=== PATIENT | female | born 1970 | race Caucasian/White ===

== ENCOUNTER 2018-03-08 19:56 | Emergency (ER) | payer BC ==
--- OUTSIDE RECORDS SUMMARY | 2018-03-08 20:04 | XMS REPORT ---
:1970 External Reference #:[id number] Author Organization Formerly [facility], [facility] Address [address] [place] [address] Phone [phone] Care Team Providers Name Role Phone Fiordaliza Kirby M.D., R.D. Care Team Information [employer] Gat[employer]r Unavailable Payers Type Date Identification Numbers Payment Provider Subscriber Commercial Effective: Policy Number: Prerna Armendariz 2008 [id number] Expires: 2010 Group Number: [id number] [address] Group Name: BC/BS of REMBERTO Wilson [id number] PayID: [id number] Medigap Part B Effective: Policy Number: Prerna Bairestrangjared 2010 [id number] Expires: 2011 PayID: [id number] [address] [address] REMBERTO Bennett [address] Medig[place] Part B Effective: Policy Number: Prerna Armendariz 2011 [id number] Group Name: [facility] [place] [address] PayID: [id number] REMBERTO Bennett [address] Problems Date Description Provider Status Onset: 10/21/2012 Gastroesophageal reflux disease MUNIR Gaspar Active Onset: 10/21/2012 Asthma without status asthmaticus Fiordaliza Kirby M.D., R.D. Active Onset: 10/21/2012 Allergic rhinitis Manuel Link M.D. Active Onset: 10/21/2012 Urinary incontinence Luke Carvajal, [facility] Active Social History Type Date Description Comments Lives With Male Partner Lives With Daughter Home Environment Uses wood heating Pets 2 dogs Occupation Teacher hiv cts specialist at [employer] Cigarette Use Never Smoked Cigarettes ETOH Use Occasionally consumes alcohol Recreational Drug Use Denies Drug Use Daily Caffeine Consumes on average 1 soda per day Enjoy Exercising Enjoys exercising not exercising as much as she would like Allergies, Adverse Reactions, Alerts Date Description Reaction Status Severity Comments 08/30/2008 Codeine Sulfate active tongue swelling, SOB Medications Medication Date Status Form Strength Qnty SIG Indications Ordering Provider Macrobid 02/04/ Active Capsules 100mg 10cap take one R30.0 Yovani 2018 s capsule by [place] mouth twice , MD a day Metronidazole 02/04/ Active Tablets 500mg 21tab take 1 R30.0 Yovani 2018 s tablet by [place] mouth 3 , MD times per day for 7 days for vaginosis caused by bacteria No Active 02/04/ Hx Unknown Medications 2017 - 2017 No Active 07/26/ Hx Unknown Medications 2015 - 2015 Azithromycin 07/26/ Hx Tablets 250mg 6tabs take 2 Yovani 2016 - tablets by [place] 02/04/ mouth MD alejandra 2017 time then take one daily for 4 days Fluticasone 07/26/ Hx Suspension 50mcg/Act 16uni inhale one Yovani Propionate 2015 - ts spray in Connie 02/04/ MD ying 2017 nostril every day Vitamin D 03/24/ Hx Capsules [id number] 8caps take 1 [place] (Ergocalciferol 2015 - capsule by Donato Carvajal, ) 04/23/ mouth twice [facility] 2014 weekly for 1 month as directed Nortriptyline 03/10/ Hx Capsules 10mg 30cap 1 by mouth 780.52 [place] HCL 2015 - s every night Donato Carvajal 07/26/ at bedtime [facility]- 2015 for headache and insomnia Prednisone 08/25/ Hx Tablets 20mg QS take 2 493.90 Fiordaliza 2013 - pills daily Kofi 03/10/ for 5 days Aniyah Dominique RRui Triamcinolone 08/31/ Hx Cream 0.1% 30gm apply to 782.1 Fiordaliza Acetonide 2012 - affected Kofi, 07/26/ area bid M.D., 2016 prn R.D. Toviaz 04/27/ Hx Tablets ER 8mg Fiordaliza 2011 - 24HR Kofi, M.D., 2016 R.D. Nexium 04/27/ Hx Capsules DR 40mg 30cap 1 po qd 530.81 Fiordaliza 2011 - s Kofi, M.D., 2016 R.D. Sucralfate 04/27/ Hx Tablets 1gm 60tab 1 po qid 530.81 Fiordaliza 2011 - s Kofi, M.D., 2013 R.D. Qvar 09/10/ Hx Aerosol 80mcg/Act 1unit 1 puff bid 493.90 Fiordaliza 2011 - s Kofi, M.D., 2016 R.D. Clindamycin 01/15/ Hx Cream 2% 1week one 616.10 [place] Phosphate 2011 - applicator Donato Carvajal, 04/27/ full into [employer] 2012 vaginal before bed for one week Omeprazole 10/26/ Hx Capsules DR 20mg 30cap 1 po qd-ac 786.59 Luke 2011 - s for stomach Donato Carvajal, 07/26/ acid [employer] 2016 Ibuprofen 10/26/ Hx Tablets 600mg 60tab 1 tid prn 786.59 Luke 2011 - s pain, take Donato Carvajal, 07/26/ with food [employer] 2016 Xopenex HFA 10/20/ Hx Aerosol 45mcg/Act 15gm 2 puffs Manuel 2010 - q4hrs prn Link, 07/26/ M.D. 2016 Ventolin HFA 10/20/ Hx Aerosol 108(90Bas 1unit 2 puffs 461.8 Manuel 2010 - e) mcg/ac s q4hrs prn Link, 07/26/ M.D. 2015 Amoxicillin/Cla 10/20/ Hx Tablets 875-125mg 20tab 1 po bid x 461.8 Manuel beckford 2010 - s 10 days Link, Potassium 01/18/ M.D. 2010 Amoxicillin 06/22/ Hx Tablets 875mg 20tab 1 po bid x 461.8 Manuel 2008 - s 10 days. Link, 09/20/ M.D. 2009 Daniela-D 12 06/22/ Hx Tablets ER 60-120mg 60tab 1 po bid 477.9 Manuel Hour 2008 - 12HR s Link, M.D. 2011 Daniela 12/22/ Hx Tablets 180mg 30tab 1 po qd 2008 - s Fariba, M.D. 2011 Amoxicillin 12/22/ Hx Tablets 875mg 20tab 1 po bid x 461.8 Manuel 2008 - s 10 days. Fariba, M.D. 2008 [place] XR 08/30/ Hx Caps ER 60mg 30cap 1 po daily 788.30 Luke 2009 - 24HR s for urine Donato Carvajal, 04/27/ [employer] 2012 Zithromax 08/30/ Hx Tablets 500mg 3Tabs 1 po daily 461.8 Luke Tri-Mohsen 2009 - for three Donato Carvajal, 06/22/ days, november [employer] 2008 repeat in 10 days if not effective Albuterol 08/30/ Hx Aerosol 90mcg/Act 1Inhl 2 puffs 461.8 Luke 2008 - r every 4-6 Donato Carvajal, 10/20/ hours if [employer] 2010 needed for cough, wheeze or shortness of breath Immunizations CPT Code Status Date Vaccine Lot # [id number] Given 05/03/2016 Influenza Virus Vaccine, Quadrivalent, 3 Yr > [id number] Quad, Preserv Free [id number] Refused 02/19/2016 Influenza Virus Vaccine, Quadrivalent, 3 Yr > Quad , Preserv Free Vital Signs Date Vital Result Comment 02/04/2018 Weight 137.00 lb Weight in kg's 62.143 BP Systolic 116 mmHg BP Diastolic 72 mmHg Heart Rate 83 /min Body Temperature 97.2 F Respiratory Rate 16 /min O2 % BldC Oximetry 99 % 03/22/2016 Weight 133.00 lb Weight in kg's 60.329 BP Systolic 106 mmHg BP Diastolic 68 mmHg Heart Rate 63 /min Body Temperature 99.2 F Respiratory Rate 14 /min Right Visual Acuity Distance 20/13 Corrected Left Visual Acuity Distance 20/15 Corrected Both Visual Acuity Distance 20/13 Corrected O2 % BldC Oximetry 98 % 02/19/2016 Weight 134.00 lb Weight in kg's 60.782 BP Systolic 98 mmHg BP Diastolic 76 mmHg Heart Rate 74 /min Body Temperature 98.9 F Height 66 inches 5'6" BMI (Body Mass Index) 21.6 kg/m2 O2 % BldC Oximetry 98 % 07/26/2015 Weight 135.00 lb Weight in kg's 61.236 BP Systolic 100 mmHg BP Diastolic 62 mmHg Heart Rate 75 /min Body Temperature 97.9 F O2 % BldC Oximetry 99 % 03/24/2015 Weight 129.00 lb Weight in kg's 58.514 BP Systolic 90 mmHg BP Diastolic 60 mmHg Heart Rate 72 /min 03/10/2015 Weight 132.00 lb Weight in kg's 59.875 BP Systolic 100 mmHg BP Diastolic 70 mmHg Heart Rate 64 /min 11/03/2013 Weight 127.00 lb Weight in kg's 57.607 BP Systolic 98 mmHg BP Diastolic 70 mmHg Heart Rate 72 /min Body Temperature 98.3 F Height 66 inches 5'6" BMI (Body Mass Index) 20.5 kg/m2 08/25/2013 Weight 124.00 lb Weight in kg's 56.246 BP Systolic 110 mmHg BP Diastolic 80 mmHg Heart Rate 80 /min Body Temperature 99.0 F 2012 Weight 135.00 lb Weight in kg's 61.236 BP Systolic 120 mmHg BP Diastolic 84 mmHg Heart Rate 68 /min 09/29/2012 Weight 137.00 lb Weight in kg's 62.143 BP Systolic 110 mmHg BP Diastolic 72 mmHg Heart Rate 80 /min Body Temperature 99.0 F 09/07/2012 Weight 138.00 lb Weight in kg's 62.597 BP Systolic 120 mmHg BP Diastolic 62 mmHg Heart Rate 104 /min 08/31/2012 Weight 138.00 lb Weight in kg's 62.597 BP Systolic 100 mmHg BP Diastolic 80 mmHg Heart Rate 96 /min Body Temperature 98.9 F 04/27/2012 Weight 138.00 lb Weight in kg's 62.597 BP Systolic 100 mmHg BP Diastolic 70 mmHg Heart Rate 72 /min 09/10/2011 Weight 141.00 lb Weight in kg's 63.958 BP Systolic 84 mmHg BP Diastolic 60 mmHg Heart Rate 88 /min Height 66 inches 5'6" BMI (Body Mass Index) 22.8 kg/m2 O2 % BldC Oximetry 99 % 01/15/2011 Weight 141.00 lb Weight in kg's 63.958 BP Systolic 102 mmHg BP Diastolic 80 mmHg Heart Rate 76 /min Body Temperature 99.1 F 10/26/2010 Weight 136.00 lb Weight in kg's 61.690 BP Systolic 110 mmHg BP Diastolic 78 mmHg Heart Rate 80 /min Body Temperature 97.8 F 10/20/2010 Weight 137.00 lb Weight in kg's 62.143 BP Systolic 100 mmHg BP Diastolic 70 mmHg Heart Rate 75 /min Body Temperature 98.7 F O2 % BldC Oximetry 99 % 06/22/2009 Weight 136.00 lb Weight in kg's 61.690 BP Systolic 116 mmHg BP Diastolic 68 mmHg Heart Rate 72 /min Body Temperature 98.0 F O2 % BldC Oximetry 96 % 12/22/2008 Weight 138.00 lb Weight in kg's 62.597 BP Systolic 110 mmHg BP Diastolic 70 mmHg Heart Rate 80 /min Body Temperature 98.8 F 08/30/2008 Weight 140.00 lb Weight in kg's 63.504 BP Systolic 118 mmHg BP Diastolic 80 mmHg Heart Rate 88 /min Body Temperature 96.9 F Results Test Date Test Result H/L Range Note Urine Culture And 02/04/2018 Urine Culture SEE RESULT BELOW 1 Sensitivities Laboratory test finding 02/04/2018 HCG DIP Test neg Neg Urine DIP 02/04/2018 Leukocytes ++ Neg Urine Nitrites neg Neg Urobilinogen norm Norm Total Protein, Urine pos Neg Urine pH 7 High 5-6 Urine Blood neg Neg Specific [place] 1.005 Low 1.01-1.02 Urine Ketones neg Neg Urine Bilirubin neg Neg Urine Glucose norm Norm CBC Auto Diff 02/19/2016 White Blood Count 9.0 10^3/uL 3.5-10.8 Red Blood Count 4.63 10^6/uL 4.0-5.4 Hemoglobin 13.9 g/dL 12.0-16.0 Hematocrit 43 % 35-47 Mean Corpuscular Volume 92 fL 80-97 Mean Corpuscular Hemoglobin 30 pg 27-31 Mean Corpuscular HGB Conc 33 g/dL 31-36 Red Cell Distribution Width 14 % 10.5-15 Platelet Count 330 10^3/uL 150-450 Mean Platelet Volume 8 um3 7.4-10.4 Abs Neutrophils 5.9 10^3/uL 1.5-7.7 Abs Lymphocytes 2.4 10^3/uL 1.0-4.8 Abs Monocytes 0.5 10^3/uL 0-0.8 Abs Eosinophils 0.1 10^3/uL 0-0.6 Abs Basophils 0.1 10^3/uL 0-0.2 Abs Nucleated RBC 0 10^3/uL Granulocyte % 65.7 % 38-83 Lymphocyte % 26.7 % 25-47 Monocyte % 5.9 % 1-9 Eosinophil % 1.0 % 0-6 Basophil % 0.7 % 0-2 Nucleated Red Blood Cells % 0 Comp Metabolic Panel 02/19/2016 Sodium 138 mmol/L 133-145 Potassium 4.0 mmol/L 3.5-5.0 Chloride 102 mmol/L 101-111 Co2 Carbon Dioxide 30 mmol/L 22-32 Anion Gap 6 mmol/L 2-11 Glucose 83 mg/dL 70-100 Blood Urea Nitrogen 14 mg/dL 6-24 Creatinine 0.76 mg/dL 0.51-0.95 BUN/Creatinine Ratio 18.4 8-20 Calcium 9.3 mg/dL 8.6-10.3 Total Protein 6.7 g/dL 6.4-8.9 Albumin 4.3 g/dL 3.2-5.2 Globulin 2.4 g/dL 2-4 Albumin/Globulin Ratio 1.8 1-3 Total Bilirubin 0.60 mg/dL 0.2-1.0 Alkaline Phosphatase 67 U/L 34-104 Alt 15 U/L 7-52 Ast 17 U/L 13-39 Egfr Non- 83.1 >60 Egfr 106.8 >60 2 Laboratory test finding 02/19/2016 Erythrocyte Sed Rate 10 mm/Hr 0-14 3 C Reactive Protein 1.14 mg/L < 5.00 4 TSH (Thyroid Stim Horm) 1.89 mcIU/mL 0.34-5.60 5 Laboratory test finding 03/10/2015 Vitamin B12 424 pg/mL 180-914 6 Vitamin D Total 25(Oh) 28.3 ng/mL Low 30-50 Comp Metabolic Panel 03/10/2015 Sodium 138 mmol/L 133-145 Potassium 4.3 mmol/L 3.5-5.0 Chloride 102 mmol/L 101-111 Co2 Carbon Dioxide 31 mmol/L 22-32 Anion Gap 5 mmol/L 2-11 Glucose 77 mg/dL 70-100 Blood Urea Nitrogen 15 mg/dL 6-24 Creatinine 0.66 mg/dL 0.51-0.95 BUN/Creatinine Ratio 22.7 High 8-20 Calcium 9.1 mg/dL 8.6-10.3 Total Protein 6.7 g/dL 6.4-8.9 Albumin 4.3 g/dL 3.2-5.2 Globulin 2.4 g/dL 2-4 Albumin/Globulin Ratio 1.8 1-3 Total Bilirubin 0.70 mg/dL 0.2-1.0 Alkaline Phosphatase 60 U/L 34-104 Alt 19 U/L 7-52 Ast 22 U/L 13-39 Egfr Non- 98.2 >60 Egfr 126.3 >60 7 CBC Auto Diff 03/10/2015 White Blood Count 8.4 10^3/uL 4.8-10.8 Red Blood Count 4.60 10^6/uL 4.0-5.4 Hemoglobin 13.8 g/dL 12.0-16.0 Hematocrit 43 % 35-47 Mean Corpuscular Volume 93 fL 80-97 Mean Corpuscular Hemoglobin 30 pg 27-31 Mean Corpuscular HGB Conc 32 g/dL 31-36 Red Cell Distribution Width 13 % 10.5-15 Platelet Count 311 10^3/uL 150-450 Mean Platelet Volume 8 um3 7.4-10.4 Abs Neutrophils 5.3 10^3/uL 1.5-7.7 Abs Lymphocytes 2.3 10^3/uL 1.0-4.8 Abs Monocytes 0.6 10^3/uL 0-0.8 Abs Eosinophils 0.1 10^3/uL 0-0.6 Abs Basophils 0.1 10^3/uL 0-0.2 Abs Nucleated RBC 0.01 10^3/uL Granulocyte % 62.9 % 38-83 Lymphocyte % 27.1 % 25-47 Monocyte % 7.1 % 1-9 Eosinophil % 1.4 % 0-6 Basophil % 1.5 % 0-2 Nucleated Red Blood Cells % 0.1 Laboratory test finding 03/10/2015 TSH (Thyroid Stim 1.71 ?IU/mL 0.34- 5.60 Horm) Urine Culture And 11/03/2013 Urine Culture (SEE NOTE) 8 Sensitivities Urine DIP 11/03/2013 Specific [place] 1.02 1.01-1.02 Urine pH 5 5-6 Leukocytes ++ Neg Urine Nitrites NEG Neg Total Protein, Urine NEG Neg Urine Glucose NORM Norm Urine Ketones NEG Neg Urobilinogen NORM Norm Urine Bilirubin NEG Neg Urine Blood 50 High Neg Laboratory test finding 08/22/2013 Rapid Influenza A B (SEE NOTE) 9 Antigen Basic Metabolic Panel 08/22/2013 Sodium 137 mmol/L 133-145 Potassium 3.4 mmol/L Low 3.5-5.0 Chloride 100 mmol/L Low 101-111 Co2 Carbon Dioxide 31.0 mmol/L 22-32 Anion Gap 6.0 mmol/L 2-11 Glucose 116 mg/dL High 70-100 Blood Urea Nitrogen 9 mg/dL 6-24 Creatinine 0.80 mg/dL 0.50-1.40 BUN/Creatinine Ratio 11.3 8-20 Calcium 8.7 mg/dL 8.1-9.9 Egfr Non- 79.4 >60 Egfr 102.2 >60 10 CBC Auto Diff 08/22/2013 White Blood Count 9.2 10^3/uL 4.8-10.8 Red Blood Count 4.60 10^6/uL 4.0-5.4 Hemoglobin 13.8 g/dL 12.0-16.0 Hematocrit 42 % 35-47 Mean Corpuscular Volume 91 fL 80-97 Mean Corpuscular Hemoglobin 30 pg 27-31 Mean Corpuscular HGB Conc 33 g/dL 31-36 Red Cell Distribution Width 14 % 10.5-15 Platelet Count 197 10^3/uL 150-450 Mean Platelet Volume 8 um3 7.4-10.4 Abs Neutrophils 7.5 10^3/uL 1.5-7.7 Abs Lymphocytes 0.8 10^3/uL Low 1.0-4.8 Abs Monocytes 0.8 10^3/uL 0-0.8 Abs Eosinophils 0 10^3/uL 0-0.6 Abs Basophils 0 10^3/uL 0-0.2 Abs Nucleated RBC 0.01 10^3/uL Granulocyte % 81.8 % 38-83 Lymphocyte % 9.2 % Low 25-47 Monocyte % 8.5 % 1-9 Eosinophil % 0.3 % 0-6 Basophil % 0.2 % 0-2 Nucleated Red Blood Cells % 0.1 Laboratory test finding 08/22/2013 Throat Beta Strep (SEE NOTE) 11 Culture Rapid Strep A 08/22/2013 Rapid Strep A (SEE NOTE) 12 Urine Culture And Sensitivities 08/22/2013 Urine Culture (SEE NOTE) 13 Urinalysis 08/22/2013 Urine Color Yellow Urine Appearance Clear Urine Specific [place] 1.019 1.010-1.030 Urine Esterase 2+ Negative Urine Nitrate Negative Negative Urine Urobilinogen Negative E.U./dL Negative Urine Protein Negative mg/dL Negative Urine pH 6.0 5-9 Urine Blood Negative Negative Urine Ketones Negative mg/dL Negative Urine Bilirubin Negative Negative Urine Glucose Negative mg/dL Negative Urine Microscopic 08/22/2013 Urine WBC 2+ (>10-30 /hpf) None Seen 14 Urine Mucus Present /lpf Absent Urine Epithelial Cells 2+ Squamous /hpf None Seen Bacteria Urine 2+ None Seen Surgical Pathology 11/26/2012 S RUN DATE: SEE NOTE> 15 Clotest 11/26/2012 Clotest (SEE NOTE) 16 Cytology 11/15/2011 Cytology <SEE NOTE> 17 Urine DIP 01/15/2011 Leukocytes TRACE Neg Urine Nitrites NEG Neg Urine pH 5 5-6 Total Protein, Urine NEG Neg Urine Glucose NORM Norm Urine Ketones NEG Neg Urobilinogen NORM Norm Urine Bilirubin NEG Neg Urine Blood TRACE Neg Specific [place] NA Low 1.01-1.02 Laboratory test 01/15/2011 GC (N. Gonorrhoeae) N 18 finding Rna GC/Chlamydia Aptima 01/15/2011 Chlamydia Trachomatis N 19 Rna Laboratory test 01/15/2011 Genital Culture NF3 20 finding Cytology 04/30/2010 Cytology 21 <SEE NOTE> GC/Chlyamdia Thin 04/30/2010 CHL On Thin Prep Vial NEGATIVE Negative 22 Prep Vial GC On Thin Prep Vial NEGATIVE Negative 23 1 SEE RESULT BELOW Name: DIGNA ARMENDARIZ : [address]: Yovani Rosales MD Acct: [id number] Unit: [id number] AGE: 47 Location: [facility] Re02/04/18 SEX: F Status: REG REF SPEC: [id number] NATALIA: 02/04/18-1754 DR: Yovani Rosales MD REQ: [id number] RECD: 02/05/18-1305 STATUS: COMP _ SOURCE: URINE SPDESC: ORDERED: Urine Culture COMMENTS: [id number] Urine Source: Random Procedure Result Reported Site Urine Culture Final 02/07/18- 0916 ML Organism 1 ESCHERICHIA COLI [place] Count 25-50,000 (Moderate) CFU/ML 1. ESCHERICHIA COLI M.I.C. RX --------- ------ Ampicillin >=32 R Cefazolin <=4 S Cefepime <=1 S Ceftriaxone <=1 S Ciprofloxacin <=0.25 S Gentamicin <=1 S Levofloxacin 1 S Meropenem <=0.25 S Nitrofurantoin <=16 S Tetracycline <=1 S Pipercillin/Tazobactam <=4 S Trimethoprim/Sulfamethoxazole >=320 R Amoxicillin/Clavulanic Acid 4 S Aztreonam <=1 S Contact the Microbiology Department for any additional antibiotic reporting. * ML - Main Lab . END OF REPORT DEPARTMENT OF PATHOLOGY, [address] [place] [address] Agapito Khan M.D. Director [facility] # [id number] 2 Because ethnic data is not always readily available, this report includes an eGFR for both -Americans and non- Americans. The National Kidney Disease Education Program (NKDEP) does not endorse the use of the MDRD equation for patients that are not between the ages of 18 and 70, are , have extremes of body size, muscle mass, or nutritional status, or are non- or non-. According to the National Kidney Foundation, irrespective of diagnosis, the stage of the disease is based on the level of kidney function: Stage Description GFR(mL/min/1.73 m(2)) 1 Kidney damage with normal or decreased GFR 90 2 Kidney damage with mild decrease in GFR 60-89 3 Moderate decrease in GFR 30-59 4 Severe decrease in GFR 15-29 5 Kidney failure <15 (or dialysis) 3 [facility] [address] 4 Acute inflammation: >10.00 5 [facility] [address] 6 Normal Range 180 to 914 Indeterminate Range 145 to 180 Deficient Range <145 7 Because ethnic data is not always readily available, this report includes an eGFR for both -Americans and non- Americans. The National Kidney Disease Education Program (NKDEP) does not endorse the use of the MDRD equation for patients that are not between the ages of 18 and 70, are , have extremes of body size, muscle mass, or nutritional status, or are non- or non-. According to the National Kidney Foundation, irrespective of diagnosis, the stage of the disease is based on the level of kidney function: Stage Description GFR(mL/min/1.73 m(2)) 1 Kidney damage with normal or decreased GFR 90 2 Kidney damage with mild decrease in GFR 60-89 3 Moderate decrease in GFR 30-59 4 Severe decrease in GFR 15-29 5 Kidney failure <15 (or dialysis) 8 RUN DATE: 11/05/13 [facility] LAB LIVE PAGE 1 RUN TIME: [address] [place] [address] Specimen Inquiry Name: DIGNA ARMENDARIZ : [address]: Fiordaliza Kirby MD Acct: [id number] Unit: [id number] AGE: 43 Location: [facility] Re11/03/13 SEX: F Status: REG REF SPEC: [id number] NATALIA: 11/03/13-[address]: Fiordaliza Kirby MD REQ: [id number] RECD: 11/03/131207 STATUS: COMP _ SOURCE: URINE SPDESC: ORDERED: Urine Culture QUERIES: Medent Number [id number] Procedure Result Verified Site Urine Culture Final 11/05/13- 1006 ML Organism 1 NORMAL JESSY [place] Count 50-75,000 (Many) CFU/ML END OF REPORT * ML=Testing performed at Main Lab DEPARTMENT OF PATHOLOGY, [facility] [place] [id number] Agapito Khan M.D. Director [facility] Permit #[id number] RUN DATE: 08/22/13 [facility] LAB LIVE PAGE 1 RUN TIME: 6853 [facility] [address] [place], [place] [address] Specimen Inquiry Name: DIGNA ARMENDARIZ : [address]: Nallely Duran MD Acct: [id number] Unit: [id number] AGE: 42 Location: ED Re08/22/13 SEX: F Status: REG ER SPEC: [id number] NATALIA: 08/22/13-[address]: Manuel QUIÑONES REQ: [id number] RECD: 08/22/13 STATUS: COLIN LEWIS DR: [facility] Fiordaliza Kirby MD _ SOURCE: [facility]: ORDERED: Rapid Flu A B Procedure Result Verified Site Rapid Influenza A B Antigen Final 08/22/13- 1226 ML Organism 1 Negative Influenza A B Antigen testing by enzyme immunoassay. Cell culture testing can be performed to confirm negative test results and to assist in detecting other viruses that can produce similar clinical symptoms. Please notify Microbiology Lab if further testing is desired. END OF REPORT * ML=Testing performed at Main Lab DEPARTMENT OF PATHOLOGY, [facility] [place], [place] [address] Agapito Khan M.D. Director [facility] Permit #[id number] 10 Because ethnic data is not always readily available, this report includes an eGFR for both -Americans and non- Americans. The National Kidney Disease Education Program (NKDEP) does not endorse the use of the MDRD equation for patients that are not between the ages of 18 and 70, are , have extremes of body size, muscle mass, or nutritional status, or are non- or non-. According to the National Kidney Foundation, irrespective of diagnosis, the stage of the disease is based on the level of kidney function: Stage Description GFR(mL/min/1.73 m(2)) 1 Kidney damage with normal or decreased GFR 90 2 Kidney damage with mild decrease in GFR 60-89 3 Moderate decrease in GFR 30-59 4 Severe decrease in GFR 15-29 5 Kidney failure <15 (or dialysis) 11 RUN DATE: 08/24/13 [facility] LAB LIVE PAGE 1 RUN TIME: 820 [facility] [address] [place], [place] [address] Specimen Inquiry Name: DIGNA ARMENDARIZ : [address]: Nallely Duran MD Acct: [id number] Unit: [id number] AGE: 42 Location: ED Re08/22/13 SEX: F Status: DEP ER SPEC: [id number] NATALIA: 08/22/13-[address] [facility] [address]: Manuel QUIÑONES REQ: [id number] RECD: 08/22/13-1209 STATUS: COLIN LEWIS DR: Nallely Kirby MD _ SOURCE: [facility]: ORDERED: Rapid Strep A, Throat Beta Str Procedure Result Verified Site Rapid Strep A Final 08/22/13- 1220 ML Organism 1 Negative Strep Group A Antigen testing by enzyme immunoassay. The utility engineer and regulatory agencies both recommend that a throat culture for beta strep be performed if a Rapid Group A Strep assay yields a negative result. Therefore a culture will be automatically performed on all negative samples. Throat Beta Strep Culture Final 08/24/13- 0820 ML Negative For Group A Beta Streptococcus END OF REPORT * ML=Testing performed at Main Lab DEPARTMENT OF PATHOLOGY, [facility] [place] [place] [address] Agapito Khan M.D. Director [facility] Permit #[id number] RUN DATE: 08/22/13 [facility] LAB LIVE PAGE 1 RUN TIME: 1221 [facility] [address] [place], [place] [address] Specimen Inquiry Name: DIGNA ARMENDARIZ : [address]: Nallely Duran MD Acct: [id number] Unit: [id number] AGE: 42 Location: ED Re08/22/13 SEX: F Status: REG ER SPEC: [id number] NATALIA: 08/22/13-[address] [facility] [address]: Manuel QUIÑONES REQ: [id number] RECD: 08/22/13121 STATUS: RES OTHR DR: Nallely Kirby MD _ SOURCE: THROAT SPDESC: ORDERED: Rapid Strep A, Throat Beta Str Procedure Result Verified Site Rapid Strep A Final 08/22/13- 1220 ML Organism 1 Negative Strep Group A Antigen testing by enzyme immunoassay. The utility engineer and regulatory agencies both recommend that a throat culture for beta strep be performed if a Rapid Group A Strep assay yields a negative result. Therefore a culture will be automatically performed on all negative samples. Throat Beta Strep Culture PENDING END OF REPORT * ML=Testing performed at Main Lab DEPARTMENT OF PATHOLOGY, [facility] [place] [place] [address] Agapito Khan M.D. Director [facility] Permit #[id number] RUN DATE: 08/24/13 [facility] LAB LIVE PAGE 1 RUN TIME: [address] [place] [address] Specimen Inquiry Name: DIGNA ARMENDARIZ : [address]: Nallely Duran MD Acct: [id number] Unit: [id number] AGE: 42 Location: ED Re08/22/13 SEX: F Status: DEP ER SPEC: [id number] NATALIA: 08/22/13-[address] [facility] [address]: Manuel QUIÑONES REQ: [id number] RECD: 08/22/13 STATUS: COLIN LEWIS DR: [facility] Fiordaliza Kirby MD _ SOURCE: URINE SPDESC: ORDERED: Urine Culture Procedure Result Verified Site Urine Culture Final 08/24/13- 09 ML Organism 1 NORMAL JESSY [place] Count 25-50,000 (Moderate) CFU/ML END OF REPORT * ML=Testing performed at Main Lab DEPARTMENT OF PATHOLOGY, [place], [place] [address] Agapito Khan M.D. Director [facility] Permit #[id number] 14 2+ (>10-30 /hpf) 15 RUN DATE: 11/27/12 [facility] LAB LIVE PAGE 1 RUN TIME: 1544 [facility] [place], [place] [address] Specimen Inquiry Name: DIGNA ARMENDARIZ : [address]: Gio Johnson MD Acct: [id number] Unit: [id number] AGE: 42 Location: ENDO Re11/26/12 SEX: F Status: REG REF SPEC: [id number] NATALIA: 11/26/12- SUBM DR: Gio Johnson MD REQ: [id number] RECD: 11/26/121208 STATUS: FANNY LEWIS DR: Fiordaliza Kirby MD _ ORDERED: LEVEL IV FINAL DIAGNOSIS Small bowel, duodenum, biopsy: A. Small bowel mucosa with normal villous architecture and no significant pathologic abnormalities. B. No infectious agent or viropathic changes identified. CLINICAL HISTORY Nausea and vomiting POST-OPERATIVE DIAGNOSIS Esophagus - hiatal hernia; stomach - biopsied; duodenum - duodenitis, biopsied GROSS DESCRIPTION The specimen is received in formalin labeled Digna Armendariz, Duodenal Biopsy and consists of multiple, walker, soft tissue fragments measuring 0.9 x 0.6 x 0.2 cm. Submitted entirely, one cassette. Signed (signature on file) Agapito Khan MD 1544 END OF REPORT * ML=Testing performed at Main Lab DEPARTMENT OF PATHOLOGY, [address] [place] [address] Agapito Khan M.D. Director [facility] Permit #[id number] 16 RUN DATE: 11/27/12 [facility] LAB LIVE PAGE 1 RUN TIME: 08 [facility] [address] Specimen Inquiry Name: DIGNA ARMENDARIZ : [address]: Gio Johnson MD Acct: [id number] Unit: [id number] AGE: 42 Location: ENDO Re11/26/12 SEX: F Status: REG REF SPEC: [id number] NATALIA: 11/26/12-[address] [facility] [address]: Gio Johnson MD REQ: [id number] RECD: 11/26/12 STATUS: COMP JOSHUA DR: Fiordaliza Kirby MD _ SOURCE: GAS ANTRUM SPDESC: ORDERED: Clotest Procedure Result Verified Site Clotest Final 11/27/12- 0808 ML Clotest Negative END OF REPORT * ML=Testing performed at Main Lab DEPARTMENT OF PATHOLOGY, [address] [place] [address] Agapito Khan M.D. Director [facility] Permit #[id number] 17 ---- RUN DATE: 11/21/11 [facility] NMI LIVE PAGE 1 RUN TIME: 827 Specimen Inquiry RUN USER: INTERFACE -- Name: DIGNA ARMENDARIZ Status: REG REF Re11/15/11 Age/Sex: 41/F Unit#: [id number] Location: [facility] : [birth year] -- Specimen: [id number] SOUT Spec Date:11/15/11-999 [facility] Dr: Kaela rodarte NP Spec Type: CYTOLOGY Received:11/18/11 Copies to: Luke nobles [employer] ECTOCERVICAL/ENDOCERVICAL Thin Prep with Reflex HPV Test PATIENT INFORMATION ACTUAL COLLECTION DATE: 11/15/11 ? No POST MENOPAUSAL? No HYSTERECTOMY? No PREVIOUS ABNORMAL PAP SMEARS Yes If YES, diagnosis: 2007 Low grade squamous intraepithelial lesion. LAST MENSTRUAL PERIOD: 11/04/11 PATIENT HISTORY: 2008 Atypical Squamous cells of undetermined significance + Human papilloma virus. 04/30/10 Within normal limits ADEQUACY OF SPECIMEN Satisfactory for evaluation * Transformation zone component identified * DIAGNOSIS NEGATIVE FOR INTRAEPITHELIAL LESION OR MALIGNANCY * NOTE Specimen sent to [employer] in [place], [place] on 11/18/11 by JACINDAO at 1057. Results will be reported separately in an addendum. ADDENDUM Addendum #1 Entered: 11/21/11 [employer] Human Papilloma Virus test results received with preparation and diagnosis completed by [facility], [place], [place]. Results: NEGATIVE -- DEPARTMENT OF PATHOLOGY, [address] [place] [address] [facility] Permit #[id number] Agapito Khan M.D. Director Stormy Javire M.D. Book Illustrator carmela -- -- RUN DATE: 11/21/11 [facility] NMI LIVE PAGE 2 RUN TIME: 827 Specimen Inquiry RUN USER: INTERFACE -- Name: DIGNA ARMENDARIZ Status: REG REF Re11/15/11 Age/Sex: 41/F Unit#: [id number] Location: [facility] : 74 -- -- CONTINUED -- ADDENDUM (Continued) High Risk (for types 16, 18, 31, 33, 35, 39, 45, 51, 52, 56, 58, 59, 68) This test was developed and its performance characteristics determined by Laboratory Medicine and Pathology, [facility], [place], [place]. It has not been cleared or approved by the U.S. Food and Drug Administration. Test Performed by: [facility] Dpt of lab Med and Pathology [address] [place] [address] [address] 9 Police Officer: Robbin Faust III, M.D. Original hard copy report from [place] [employer] is available upon request by calling Pathology at [phone]. Addendum Review Nicolasa BURKETT([facility]) 11/21/11 -- This Pap test was evaluated with the assistance of the [employer] Pap Test Imaging System. The Pap Smear is a screening test designed to aid in the detection of premalign ant and malignant conditions of the uterine cervix. It is not a diagnostic procedure a nd should not be used as the sole means of detecting cervical cancer. Both false- positiv e and false-negative reports do occur. Depending on your risk status, a Pap smear keily uld be obtained and evaluated every one to three years. Initial evaluation performed by Sathish FUENTES([facility]) 11/18/11 Final Interpretation electronically signed by: Sathish FUENTES([facility]) 11/18/11 1559 -- -- DEPARTMENT OF PATHOLOGY, [address] [place] [address] [facility] Permit #[id number] Agapito Khan M.D. Director Stormy Javier M.D. Book Illustrator Dir carmela -- 18 NEGATIVE FOR NEISSERIA GONORRHOEAE rRNA A negative result does not preclude the presence of a C.trachomatis or N.gonorrhoeae infection because results are dependent on adequate specimen collection, absence of inhibitors, and sufficient rRNA to be detected. Test results may be affected by improper specimen collection, improper specimen storage, technical error, or specimen mixup. 19 NEGATIVE FOR CHLAMYDIA TRACHOMATIS rRNA A negative result does not preclude the presence of a C.trachomatis or N.gonorrhoeae infection because results are dependent on adequate specimen collection, absence of inhibitors, and sufficient rRNA to be detected. Test results may be affected by improper specimen collection, improper specimen storage, technical error, or specimen mixup. 20 NORMAL GENITAL JESSY 21 ---- RUN DATE: 05/04/10 [facility] NMI LIVE PAGE 1 RUN TIME: 1520 Specimen Inquiry RUN USER: INTERFACE -- Name: DIGNA ARMENDARIZ Acclisette#: [id number] Status: REG REF Re04/30/10 Age/Sex: 39/F Unit#: [id number] [facility] [birth year] -- Specimen: [id number] SOUT Spec Date: 04/30/[address]: Pete lynn MD Spec Type: CYTOLOGY Received: 05/01/101125 Copies to: Luke Witt [employer] ECTOCERVICAL/ENDOCERVICAL Thin Prep with Reflex HPV Test PATIENT INFORMATION ACTUAL COLLECTION DATE: 04/30/10 ? No POST MENOPAUSAL? No HYSTERECTOMY? No PREVIOUS ABNORMAL PAP SMEARS Yes LAST MENSTRUAL PERIOD: 04/13/10 PATIENT HISTORY: 08/2007 Low grade squamous intraepithelial lesion. 10/2008 Atypia + Human papilloma virus. ADEQUACY OF SPECIMEN Satisfactory for evaluation * Transformation zone component identified * DIAGNOSIS NEGATIVE FOR INTRAEPITHELIAL LESION OR MALIGNANCY * NOTE Specimen sent to [employer] in [place], [place] on 05/01/10 by DB at 1223. Results will be reported separately in an addendum. ADDENDUM Addendum #1 Entered: 05/04/10-6370 [employer] Human Papilloma Virus test results received with preparation and diagnosis completed by [facility], [place], [place]. Results: NEGATIVE High Risk (for types 16, 18, 31, 33, 35, 39, 45, 51, 52, 56, 58, 59, 68) -- DEPARTMENT OF PATHOLOGY, [address] [place] [address] [facility] Permit #[id number] Agapito Khan M.D. Director Stormy Javier M.D. Book Illustrator carmela -- -- RUN DATE: 05/04/10 [facility] NMI LIVE PAGE 2 RUN TIME: 1520 Specimen Inquiry RUN USER: INTERFACE -- Name: DIGNA ARMENDARIZ Acclisette#: [id number] Status: REG REF Re04/30/10 Age/Sex: 39/F Unit#: [id number] Location: [facility] : 74 -- -- CONTINUED -- ADDENDUM (Continued) This test was developed and its performance characteristics determined by Laboratory Medicine and Pathology, [facility], [place], [place]. It has not been cleared or approved by the U.S. Food and Drug Administration. Test Performed by: [facility] Dpt of lab Med and Pathology [address] [place] [address] K 9 Police Officer: Robbin Faust III, M.D. Original hard copy report from [facility] is available upon request by calling Pathology at [phone]. Addendum Review Nicolasa BURKETT CT(ASCP) 05/03/10 (p reliminary) Nicolasa BURKETT CT(ASCP) 05/04/10 -- This Pap test was evaluated with the assistance of the [employer]Prep Pap Test Imaging System. The Pap Smear is a screening test designed to aid in the detection of premalign ant and malignant conditions of the uterine cervix. It is not a diagnostic procedure a nd should not be used as the sole means of detecting cervical cancer. Both false- positiv e and false-negative reports do occur. Depending on your risk status, a Pap smear keily uld be obtained and evaluated every one to three years. Final Interpretation electronically signed by: Nicolasa BURKETT CT(ASCP) 05/01/10 132 7 -- -- DEPARTMENT OF PATHOLOGY, [address] [place] [address] [facility] Permit #[id number] Agapito Khan M.D. Director Stormy Javier M.D. Book Illustrator Dir carmela -- 22 . A negative result does not preclude the presence of a C.trachomatis or N.gonorrhoeae infection because results are dependent on adequate specimen collection, absence of inhibitors, and sufficient rRNA to be detected. Test results may be affected by improper specimen collection, improper specimen storage, technical error, or specimen mixup. . 23 . A negative result does not preclude the presence of a C.trachomatis or N.gonorrhoeae infection because results are dependent on adequate specimen collection, absence of inhibitors, and sufficient rRNA to be detected. Test results may be affected by improper specimen collection, improper specimen storage, technical error, or specimen mixup. . Procedures Date CPT Code Description Status 09/10/2011 45410 Spirometry Completed Encounters Type Date Location Provider CPT E/M Dx Office Visit 03/22/2016 4:00p [place] [address] R60.9 Office Visit 02/19/2016 11:30a Main Office Martha Vasquez [facility]C 67954 R60.9 Office Visit 07/26/2015 3:00p [place] [address] J01.80 Office Visit 03/24/2015 10:30a Main Office Sarkis Diaz III, [employer]-C 61825 373.8 Office Visit 03/10/2015 9:30a Main Office Luke Carvajal, MANAGER CONSTRUCTION-C 48074 780.52 346.01 Office Visit 11/03/2013 10:45a Main Office Fiordaliza Kirby M.D., R.D. 72884 724.2 726.32 Office Visit 08/25/2013 10:30a Main Office Fiordaliza Kirby M.D., R.D. 50792 466.0 791.9 493.90 Office Visit 2012 2:30p Main Office JOURDAN Gaspar-C 65460 530.81 Office Visit 09/29/2012 4:45p Main Office Luke Carvajal [employer]NA[employer]-C 36236 465.9 Office Visit 09/07/2012 11:45a Main Office Fiordaliza Kirby M.D., R.D. 38678 782.1 Office Visit 08/31/2012 3:15p Main Office Fiordaliza Kirby M.D., R.D. 28312 782.1 Office Visit 04/27/2012 3:45p Main Office Fiordaliza Kirby M.D., R.D. 17699 530.81 493.90 Office Visit 09/10/2011 2:15p Main Office LISBETH GasparP-C 26091 493.90 Office Visit 01/15/2011 2:15p Main Office Luke Carvajal [employer]NA[employer]-C 87693 616.10 Office Visit 10/26/2010 4:15p Main Office Luke Carvajal [employer]NAGER [employer]STRU[employer]-C 14910 786.59 Office Visit 10/20/2010 10:45a Main Office Manuel Link M.D. 02264 461.8 Office Visit 06/22/2009 4:15p Main Office Manuel Link M.D. 55727 461.8 477.9 Office Visit 12/22/2008 4:45p Main Office Manuel Link M.D. 71053 461.8 477.9 782.9 Office Visit 08/30/2008 3:30p Main Office Luke Carvajal, [facility] 17288 788.30 461.8 Plan of Care 02/04/2018 - Yovani Rosales, MDR30.0 DysuriaNew Medication:Macrobid 100 mgMetronidazole 500 mgComments:UTI or spastic bladder or BV and yeast infection.She seems to have effectively treated the yeast infection.We will test for a UTI while treating, but there is definitely a possibility this is her knownspastic bladder.N92.4 Excessive bleeding in the premenopausal periodComments:Single episode of intermenstrual bleeding- checked a u-HCG to rule out remote possibility of (mickey ectopic) but it was negative.
[2018-03-08 20:26] VITALS: BP 121/89
--- NOTE | 2018-03-08 21:10 | UC ---
Complaint Female HPI - HPI Summary HPI Summary: urinary frequency and urgency for the past 3 days. Denies chills, fever, flank pain. Had UTI 6 weeks ago, is not sure what triggered it. - History Of Current Complaint Chief Complaint: UCGU Stated Complaint: FREQUENT URINATION Time Seen by Provider: 03/08/18 21:01 Hx Obtained From: Patient Hx Last Menstrual Period: [id number] ?: No Onset/Duration: Sudden Onset, Lasting Days Timing: Constant Severity Initially: Mild Severity Currently: Moderate Pain Intensity: 6 Character: Burning Aggravating Factor(s): Urination Alleviating Factor(s): Nothing Associated Signs And Symptoms: Positive: Negative - Risk Factors Ectopic Risk Factor: Negative Ovarian Torsion Risk Factor: Negative - Allergies/Home Medications Allergies/Adverse Reactions: Allergies Allergy/AdvReac Type Severity Reaction Status Date / Time codeine Allergy Severe Swelling Verified 03/08/18 20:27 Of Face,Lips,& Throat Home Medications: Home Medications Fexofenadine/Pseudoephedrine [Daniela-D 24 Hour Tablet] 1 tab PO DAILY PRN 03/08 [History Confirmed 03/08/18] Multivitamin [Multivitamins] 1 cap PO DAILY 03/08/18 [History Confirmed 03/08/18 ] PMH/Surg Hx/FS Hx/Imm Hx Previously Healthy: Yes - Surgical History Surgical History: Yes Surgery Procedure, Year, and Place: app, T&A - Family History Known Family History: Positive: None - Social History Alcohol Use: Rare Substance Use Type: None Smoking Status (MU): Never Smoked Tobacco Review of Systems Constitutional: Negative Skin: Negative Eyes: Negative ENT: Negative Respiratory: Negative Cardiovascular: Negative Gastrointestinal: Negative Genitourinary: Dysuria, Frequency, Urgency All Other Systems Reviewed And Are Negative: Yes Physical Exam Triage Information Reviewed: Yes Appearance: Well-Appearing, No Pain Distress, Well-Nourished Vital Signs: Initial Vital Signs Temp 97.5 F 03/08/18 20:17 Pulse 85 03/08/18 20:17 Resp 16 03/08/18 20:17 BP 121/89 03/08/18 20:17 Pulse Ox 100 03/08/18 20:17 Vital Signs Reviewed: Yes Eyes: Positive: Conjunctiva Clear ENT: Positive: Hearing grossly normal Respiratory: Positive: Chest non-tender Cardiovascular: Positive: Pulses Normal, Brisk Capillary Refill Abdomen Description: Positive: Nontender, No Organomegaly, Soft Skin Exam: Normal Complaint Female Dx - Course Course Of Treatment: patient to start macrobid as prescribed. First dose given today. Oral hydration. ran out of macrobid. Will give first dose of cipro at . f/u with Dr. Nathan. - Differential Dx/Diagnosis Provider Diagnoses: uti Discharge - Sign-Out/Discharge Documenting (check all that apply): Patient Departure - Discharge Plan Condition: Good Disposition: HOME Prescriptions: Nitrofurantoin Macrocrystals* [Macrodantin 100 mg*] 100 mg PO BID 7 Days #14 cap Nitrofurantoin Monohyd/M-Cryst [Macrobid 100 mg Capsule] 100 mg PO BID 7 Days # 14 cap Patient Education Materials: Nitrofurantoin Combination (By mouth), Urinary Tract Infection in Women (ED) Referrals: Fiordaliza Lane MD [Primary Care Provider] - - Billing Disposition and Condition Condition: GOOD Disposition: Home
[2018-03-08] MEDS ORDERED: Nitrofurantoin Macrocrystals* 50 MG CAP PO ONE ×2 (21:28→21:42)
[2018-03-08] MEDS ORDERED: Ciprofloxacin TAB* 500 MG PO ONE (21:47)
== END 2018-03-08 22:01 | disposition home or self-care (01) ==
LOC: UCEAST 19:56
DX: N39.0 Urinary tract infection, site not specified (principal); Z88.5 Allergy status to narcotic agent
CPT/HCPCS: 81003; 84702; 87077; 87086; 87186; 99212; A9270-GY; G0463

== ENCOUNTER 2018-11-05 10:21 | Emergency (ER) | payer BC ==
[2018-11-05 11:18] VITALS: BP 115/86
--- NOTE | 2018-11-05 11:20 | UC ---
Ear Complaint HPI - HPI Summary HPI Summary: 48 yo female presents with sinus pain/pressure/congestion and right ear pain. She tells me that she has been having issues with her sinuses for the last 2 weeks and has been taking nyquill, using a netti pot, and using essential oils with some relief. Over the last 3-4 days, however, her sinus symptoms worsened and she developed right ear pain, which has gotten progressively worse. She denies fever, chills, sore throat, cough, rash. - History of Current Complaint Chief Complaint: UCEar Stated Complaint: EAR PAIN Time Seen by Provider: 11/05/18 11:20 Hx Obtained From: Patient Hx Last Menstrual Period: last week Onset/Duration: Gradual Onset Severity Initially: Mild Severity Currently: Moderate Pain Intensity: 6 Pain Scale Used: 0-10 Numeric - Allergies/Home Medications Allergies/Adverse Reactions: Allergies Allergy/AdvReac Type Severity Reaction Status Date / Time codeine Allergy Severe Swelling Verified 11/05/18 11:18 Of Face,Lips,& Throat Home Medications: Home Medications Dm/Acetaminophen/Doxylamine [Night Cold-Flu Relief Liq Gel] 1 each PO 11/05/18 [ History] PMH/Surg Hx/FS Hx/Imm Hx - Additional Past Medical History Additional PMH: None - Surgical History Surgical History: Yes Surgery Procedure, Year, and Place: [facility], T&A - Family History Known Family History: Positive: None - Social History Occupation: Employed Full-time Lives: With Family Alcohol Use: Rare Substance Use Type: None Smoking Status (MU): Never Smoked Tobacco Review of Systems All Other Systems Reviewed And Are Negative: Yes Constitutional: Positive: Negative Skin: Positive: Negative Eyes: Positive: Negative ENT: Positive: Ear Ache, Nasal Discharge, Sinus Congestion, Sinus Pain/ Tenderness Respiratory: Positive: Negative Cardiovascular: Positive: Negative Gastrointestinal: Positive: Negative Neurovascular: Positive: Negative Neurological: Positive: Negative Psychological: Positive: Negative Physical Exam - Summary Physical Exam Summary: GENERAL: NAD. WDWN. No pain distress. SKIN: No rashes, sores, lesions, or open wounds. HEENT: Head: AT/NC Eyes: EOM intact. Conjunctiva clear without inflammation or discharge. Ears: Hearing grossly normal. TMs intact, no bulging, erythema, or edema. Right ear with mild clear fluid behind TM. Nose: Nasal mucosa mildly swollen and erythematous without discharge. TTP maxillary and frontal sinus right > left. Positive post nasal drip Throat: Posterior oropharynx without exudates, erythema, or tonsillar enlargement. Uvula midline. NECK: Supple. Nontender. No lymphadenopathy. CHEST: CTAB. No r/r/w. No accessory muscle use. Breathing comfortably and in no distress. CV: RRR. Without m/r/g. Pulses intact. NEURO: Alert. PSYCH: Age appropriate behavior. Triage Information Reviewed: Yes Vital Signs: Initial Vital Signs Temp 98.1 F 11/05/18 11:14 Pulse 81 11/05/18 11:14 Resp 14 11/05/18 11:14 BP 115/86 11/05/18 11:14 Pulse Ox 98 11/05/18 11:14 Vital Signs Reviewed: Yes Ear Complaint Course/Dx - Course Course Of Treatment: Sinusitis - Differential Dx/Diagnosis Provider Diagnosis: Sinusitis Discharge - Sign-Out/Discharge Documenting (check all that apply): Patient Departure All imaging exams completed and their final reports reviewed: No Studies - Discharge Plan Condition: Stable Disposition: HOME Prescriptions: Amoxicillin PO (*) [Amoxicillin 875 MG (*)] 875 mg PO BID #14 tab Patient Education Materials: Sinusitis (ED) Referrals: Fiordaliza Lane MD [Primary Care Provider] - Additional Instructions: If you develop a fever, shortness of breath, chest pain, new or worsening symptoms - please call your PCP or go to the ED. Continue your yntj-fgy-[id number] medications as directed - Billing Disposition and Condition Condition: STABLE Disposition: Home
== END 2018-11-05 11:38 | disposition home or self-care (01) ==
LOC: UCEAST 10:21
DX: J32.9 Chronic sinusitis, unspecified (principal); H92.01 Otalgia, right ear; Z88.5 Allergy status to narcotic agent
CPT/HCPCS: 99212; G0463

== ENCOUNTER 2019-05-16 13:26 | Emergency (ER) | payer BC ==
[2019-05-16] MEDS ORDERED: Sulfamethox/Trimethoprim DS 800/160* TAB PO ONE ×2 (15:40)
--- NOTE | 2019-05-16 15:41 | ED ---
GI/ HPI - HPI Summary HPI Summary: 48-year-old female who presents with vaginal and rectal pain and swelling that started Friday. Patient states she had a bowel movement on and then noticed swelling in her vaginal area. She went to her PCP on Friday and was given lidocaine, Tylenol and Advil. She went back to PCP yesterday for continued pain and swelling, they discussed her case with on-call manufacturing helper and she was given tramadol and Colace as well as sitz bath and ice to the area. Today she said she had an episode of vomiting after taking tramadol for pain, and immediately noticed bleeding from the area. Then she came to the ED. She also has chronic sinus headache. Denies fevers or chills, vaginal bleeding or discharge. Rating pain 10/10 prior to arrival which has somewhat decreased since arrival to ED. - History of Current Complaint Chief Complaint: EDGeneral Time Seen by Provider: 05/16/19 15:11 Stated Complaint: VAGINAL AREA PAIN PER PT Hx Obtained From: Patient Hx Last Menstrual Period: last week Onset/Duration: Started Days Ago, Still Present Timing: Constant Pain Intensity: 7 Associated Signs and Symptoms: Positive: Vomiting, Other: - RODRIGUEZ, vaginal swelling ; denies vaingal bleeding. Negative: Discharge, Fever, Chills Aggravating Factor(s): Nothing Alleviating Factor(s): Nothing - Allergy/Home Medications Allergies/Adverse Reactions: Allergies Allergy/AdvReac Type Severity Reaction Status Date / Time codeine Allergy Severe Swelling Verified 05/16/19 13:34 Of Face,Lips,& Throat Home Medications: Home Medications Tramadol HCl 50 mg PO Q6H PRN 05/16/19 [History Confirmed 05/16/19] PMH/Surg Hx/FS Hx/Imm Hx Endocrine/Hematology History: Denies: Hx Diabetes, Hx Thyroid Disease Cardiovascular History: Denies: Hx Hypertension Respiratory History: Reports: Hx Asthma Denies: Hx Chronic Obstructive Pulmonary Disease (COPD) GI History: Denies: Hx Ulcer - Cancer History Hx Chemotherapy: No Hx Radiation Therapy: No - Surgical History Surgery Procedure, Year, and Place: appy, T&A - Immunization History Date of Influenza Vaccine: unknown Infectious Disease History: No Infectious Disease History: Denies: Hx Hepatitis, Hx Human Immunodeficiency Virus (HIV), Traveled Outside the [place] in Last 30 Days - Family History Known Family History: Positive: Hypertension, Other - breast CA - Social History Alcohol Use: Rare Hx Substance Use: No Substance Use Type: Reports: None Hx Tobacco Use: No Smoking Status (MU): Never Smoked Tobacco Review of Systems Negative: Fever, Chills Positive: Vomiting Positive: pain - vaginal and rectal, other - denies vaginal bleeding or discharge; reports vaginal swelling Positive: Headache All Other Systems Reviewed And Are Negative: Yes Physical Exam - Summary Physical Exam Summary: Constitutional: Mild distress 2/2 pain Skin: Warm, Dry HENT: Normocephalic; Atraumatic Eyes: Conjunctiva normal Neck: Musculoskeletal ROM normal neck. (-) JVD, (-) Stridor Cardio: Rhythm regular, rate normal, Heart sounds normal; Intact distal pulses; Radial pulses are 2+ and symmetric. (-) Murmur Pulmonary/Chest wall: Effort normal. (-) Respiratory distress, (-) Wheezes, (-) Rales Abd: Soft, (-) tenderness, (-) Distension, (-) Guarding, (-) Rebound. No rectal bleeding or tenderness :External Exam: Swelling with erythema of the distal right labia with swelling near the Bartholin's gland. Purulent drainage and bloody drainage from the area. Rn Candi present during entire exam Musculoskeletal: (-) Edema Lymph: (-) Cervical adenopathy Neuro: Alert, Oriented x3 Psych: Mood and affect Normal l Triage Information Reviewed: Yes Vital Signs On Initial Exam: Initial Vitals Temp Pulse Resp BP Pulse Ox 97.8 F 88 16 113/83 100 05/16/19 13:28 05/16/19 13:28 05/16/19 13:28 05/16/19 13:28 05/16/19 13:28 Vital Signs Reviewed: Yes Procedures - Sedation Patient Received Moderate/Deep Sedation with Procedure: No Diagnostics - Vital Signs Vital Signs Temp Pulse Resp BP Pulse Ox 05/16/19 15:15 87 130/88 100 05/16/19 13:28 97.8 F 88 16 113/83 100 - Laboratory Lab Statement: Any lab studies that have been ordered have been reviewed, and results considered in the medical decision making process. GIGU Course/Dx - Course Course Of Treatment: 48-year-old female who presents with vaginal swelling and bleeding, found to have likely Bartholin's abscess. Now abscess is draining, patient given Bactrim twice a day for 7 days, will follow-up with her manufacturing helper Dr. Nathan. Would advise return for worsening symptoms, fevers, or if she is concerned. - Diagnoses Provider Diagnoses: Bartholin's gland abscess Discharge ED - Sign-Out/Discharge Documenting (check all that apply): Patient Departure - discharge - Discharge Plan Condition: Stable Disposition: HOME Prescriptions: Sulfamethox/Trimethoprim DS* [Bactrim DS 800/160 TAB*] 1 tab PO BID 6 Days #12 tab Patient Education Materials: Bartholin Cyst (ED) Referrals: Saira Nathan MD [Medical Doctor] - As Soon As Possible Additional Instructions: You were seen in the emergency department for vaginal pain and swelling. You likely had of Bartholin's cyst that developed an abscess. Please take Bactrim and antibiotic twice a day for 7 days. Please follow-up with gynecology. Please return for worsening pain, fevers, or if you're concerned. - Billing Disposition and Condition Condition: STABLE Disposition: Home - Attestation Statements Document Initiated by Josefina: Yes Documenting Scribe: July Lazcano Provider For Whom Josefina is Documenting (Include Credential): Dr. Lenka Morley MD Scribe Attestation: IJuly, scribed for Dr. Lenka Morley MD on 05/16/19 at 1912. Scribe Documentation Reviewed: Yes Provider Attestation: The documentation as recorded by the July nguyen accurately reflects the service I personally performed and the decisions made by me, Dr. Lenka Morley MD Status of Scribe Document: Viewed
[2019-05-16 15:59] VITALS: BP 121/79
== END 2019-05-16 16:00 | disposition home or self-care (01) ==
LOC: ED 13:26
DX: N75.1 Abscess of Bartholin's gland (principal); Z88.5 Allergy status to narcotic agent
CPT/HCPCS: 87070; 87076; 87077; 87185; 87186; 87205; 87640; 87641; 99283; A9270-GY